=== PATIENT | male | born 1985 | race Caucasian/White ===

== ENCOUNTER 2017-04-16 17:32 | Emergency (ER) | payer BC | END 2017-04-16 21:15 | disposition home or self-care (01) | LOC: ER 17:32 | DX: K29.20 Alcoholic gastritis without bleeding (principal); F32.9 Major depressive disorder, single episode, unspecified; F41.9 Anxiety disorder, unspecified; F17.290 Nicotine dependence, other tobacco product, uncomplicated | CPT/HCPCS: 36415; 96365; 96375; G0480; Q9967 ==